=== PATIENT | female | born 1960 | race Caucasian/White ===

== ENCOUNTER 2016-10-11 10:44 | Emergency (ER) | payer BC, OTHER ==
[2016-10-11 11:01] VITALS: TEMP 98.1; BMI 37.9
[2016-10-11] MEDS ORDERED: MORPHINE 4 MG/ML INJECTION IV ONE ×2 (11:33→15:07)
[2016-10-11] MEDS ORDERED: NS 1,000 ML IV ONE (11:34)
[2016-10-11] MEDS ORDERED: SODIUM CHLORIDE 0.9% 3 ML FLUSH FLUSH PRN (11:34)
--- NOTE | 2016-10-11 11:44 | EDPRACDOC ---
- General Information Chief Complaint: Female Urogenital Problems Stated Complaint: LEFT FLANK PAIN Time Seen by Provider: 10/11/16 11:03 Information Source: Patient Mode Of Arrival: Car Home Medications: Home Medications Alprazolam [Xanax] 0.5 mg PO DAILY PRN 10/11/16 Ascorbate Calcium [Vitamin C] 500 mg PO DAILY 10/11/16 Aspirin (Enteric Coated) [Ecotrin] 81 mg PO DAILY 10/11/16 CYANOCOBALAMIN (Vitamin B-12) [Vitamin B-12 (cyanocobalamin)] 1 ml SQ QMONTH Calcium Carbonate [Calcium] 600 mg PO DAILY 10/11/16 Cranberry Extract [Cranberry] 200 mg PO DAILY 10/11/16 Desloratadine [Clarinex] 5 mg PO DAILY 10/11/16 Ergocalciferol (Vitamin D2) [Vitamin D] 400 unit PO DAILY 10/11/16 Ferrous Sulfate [Iron] 325 mg PO DAILY 10/11/16 Fluoxetine HCl [Prozac] 40 mg PO DAILY 10/11/16 Folic Acid 1 mg PO DAILY 10/11/16 Furosemide [Lasix] 40 mg PO DAILY 10/11/16 Hydrocodone Bit/Acetaminophen [Hydrocodon-Acetaminophen 5-325] 1 tab PO Q6H PRN #14 tab 10/11/16 Hydrocodone Bit/Acetaminophen [[place] 5-325 Tablet] 1 tab PO Q4H PRN 10/11/16 Lactobacillus Combination No.4 [Probiotic] 1 cap PO DAILY 10/11/16 Levothyroxine [Synthroid, Levoxyl] 50 mcg PO DAILY 10/11/16 Loratadine 10 mg PO BID 10/11/16 Multivitamin [One Daily] 1 tab PO DAILY 10/11/16 Omeprazole 20 mg PO DAILY 10/11/16 Ondansetron HCl [Zofran] 4 mg PO Q8H PRN #10 tab 10/11/16 Prednisone [Deltasone, Orasone] 15 mg PO DAILY 10/11/16 Ubidecarenone [Co Q10] 200 mg PO DAILY 10/11/16 Allergies/Adverse Reactions: Allergies Allergy/AdvReac Type Severity Reaction Status Date / Time acetaminophen [From Percocet] Allergy Hives* Verified 10/11/16 11:01 meperidine [From Demerol] Allergy Anaphylaxis Verified 10/11/16 11:01 * oxycodone [From Percocet] Allergy Hives* Verified 10/11/16 11:01 - History of Present Illness Onset: days Pain Location: Reports: Left Relevant History: Reports: UTI Pain Severity: Reports: Moderate Pain Quality: Reports: Aching, Sharp Associated Signs and Symptoms: Reports: Abdominal Pain, Dysuria ED Past Medical History - History Reviewed Yes Nurses notes reviewed and agree except as marked - Patient Medical History Neurological History: Comment Only: Cerebrovascular Accident (facial stroke at 19) Psychological History: Reports: Anxiety. Denies: Depression Surgical History: Reports: Hysterectomy - Social Medical History Smoking Status: Never smoker ETOH: None Substance Abuse: None Lives In: Home EDM Review of Systems - Review of Systems ROS Negative Except as Marked: Yes All systems reviewed and were negative except as marked Constitutional: No Symptoms Reported Eyes: No Symptoms Reported Respiratory: No Symptoms Reported Cardiovascular: No Symptoms Reported Gastrointestinal: Pain Genitourinary: Frequency, Flank Pain, Urgency to urinate Neurological: No Symptoms Reported Integumentary: No Symptoms Reported - Physical Exam Constitutional: Alert (Awake), No apparent distress Oriented to: Time, Person, Place Last recorded Vital Signs: Last Vital Signs Temp 98.1 F 10/11/16 10:56 Pulse 97 10/11/16 11:01 Resp 19 10/11/16 11:01 BP 155/76 10/11/16 11:01 Pulse Ox 100 10/11/16 11:01 Oxygen Pulse Oxygen Saturation 100 O2 Device Oxygen Flow Rate Fraction of Inspired Oxygen ( FIO2) - HEENT Head: Normal ( normocephalic) Eye Exam: Normal (PERRL, EOMI, Sclera white) Nose: No Symptoms Reported (septum midline) Neck: Normal (FROM, trachea at midline) - Respiratory/Cardiovascular Respiratory: Normal - CTA (BBS clear to auscultation without adventitious sounds ) Cardiovascular: Normal (RRR without murmur, gallop or rub) - GI Auscultation: Normal (NABS) Tenderness: Non tender - Musculoskeletal Back: Normal (Non-Tender). negative: CVA Tenderness Extremities: Normal (Normal tone, Pulses 2+ No cyanosis or edema, FROM) - Integumentary Skin: Normal, Warm, Dry Lymphatics: Normal (no adenopathy) - Neurologic Memory Impaired: Normal Motor Function: Normal (Normal tone, Pulses 2+ No cyanosis or edema, FROM) Mood Description: Normal - Re-evaluation Re-evaluation 1 Re-evaluation Time: 13:19 Will await culture for UA and keep patient on Cipro at this time. Discussed results of UTI/kidney stone with patient. No nausea/vomiting, no fever, stable for d/c, return for symptoms discussed and followup with Urologist. - Results 10/11/16 12:00 10/11/16 12:00 Decision Time to Discharge: 13:26 - Departure Disposition: Home Condition: Stable Final Diagnosis: Kidney stone on left side Urinary tract infection Qualifiers: Urinary tract infection type: site unspecified Hematuria presence: with hematuria Qualified Code(s): N39.0 - Urinary tract infection, site not specified Instructions: Urinary Tract Infection in Women (ED), Dysuria Education/Counseling Given To: Patient Education/Counseling Given Regarding: Diagnosis, Treatment, Prognosis, Follow Up Referrals: Lon Spencer Jr, MD [Primary Care Provider] - 1-2 days Taye Guerra MD [Staff Physician] - One Week Prescriptions: Hydrocodone Bit/Acetaminophen [Hydrocodon-Acetaminophen 5-325] 1 tab PO Q6H PRN #14 tab PRN Reason: Pain Ondansetron HCl [Zofran] 4 mg PO Q8H PRN #10 tab PRN Reason: Nausea/Vomiting Forms: Excuse Note Additional Instructions: Please followup with Urologist as discussed Wednesday for an appt. Drink plenty of fluids, strain your urine, followup with PCP in 1-2days. Continue antibiotic treatment.
[2016-10-11 12:26] LABS: AUTOMATED BASOPHIL 0.3 % (0-2); AUTOMATED EOSINOPHIL 1.4 % (0-5); AUTOMATED LYMPH 8.4 % (17-44); AUTOMATED MONOCYTE 4.8 % (3-10); AUTOMATED NEUTROPHIL 85.1 % (45-76); MPV 8.6 fL (7.4-10.4)
[2016-10-11 12:40] LABS: BLOOD UREA NITROGEN 14 MG/DL (7-17); CALC CORRECTED 9.7 MG/DL (8.4-10.2); CALCIUM 9.5 MG/DL (8.4-10.2); CALCULATED OSMOLALITY 272 MOs/Kg (270-290); CHLORIDE 101 mEq/L (98-107); GLUCOSE 102 MG/DL (70-99); SODIUM LEVEL 141 mEq/L (137-146); TOTAL PROTEIN 6.4 G/DL (6.3-8.2)
[2016-10-11 12:40] LABS: NITRITE/URINE NEG (NEGATIVE); URINE OCCULT BLOOD 1+ (NEG/TRACE)
[2016-10-11 12:41] LABS: LEUKOCYTES/URINE 3+ (NEGATIVE)
[2016-10-11 12:45] LABS: WBC/URINE 20-30 (0-5)
[2016-10-11] MEDS ORDERED: CEFTRIAXONE 1 GM in D5W 100 ML IV ONE (12:51)
--- NOTE | 2016-10-11 12:57 | DIRPT ---
CLINICAL DATA: Left flank pain and urinary frequency for 1 week. Urinary tract infection. EXAM: CT ABDOMEN AND PELVIS WITHOUT CONTRAST TECHNIQUE: Multidetector CT imaging of the abdomen and pelvis was performed following the standard protocol without IV contrast. COMPARISON: None. FINDINGS: Lower chest: No acute findings. Mild cardiomegaly. Mild bilateral lower lobe scarring noted. Hepatobiliary: Diffuse hepatic steatosis noted. No liver masses visualized on this unenhanced exam. Gallbladder is unremarkable. Pancreas: No mass or inflammatory process identified on this un-enhanced exam. Spleen: Within normal limits in size. Adrenals/Urinary Tract: Adrenal glands are unremarkable. No intrarenal calculi identified. Mild left hydronephrosis and ureterectasis is seen. Multiple pelvic phleboliths are noted, but there does appear to be a single 2 mm calculus in the distal left ureter at the ureterovesical junction. Stomach/Bowel: No evidence of obstruction, inflammatory process, or abnormal fluid collections. Diverticulosis is seen involving the descending sigmoid colon, however there is no evidence of diverticulitis. Vascular/Lymphatic: No pathologically enlarged lymph nodes. No evidence of abdominal aortic aneurysm. Reproductive: Prior hysterectomy noted. 2 x 3 cm benign-appearing left ovarian cyst incidentally noted. Other: None. Musculoskeletal: No suspicious bone lesions identified. IMPRESSION: Mild left hydroureteronephrosis due to 2 mm calculus at the left ureterovesical junction. Hepatic steatosis. Colonic diverticulosis. No radiographic evidence of diverticulitis. Electronically Signed By: Raj Razo M.D. On: 10/11/2016 12:54
[2016-10-11 15:33] VITALS: BP 149/79; PULSE 75
[2016-10-11] MEDS ORDERED: SODIUM CHLORIDE 0.9% 3 ML FLUSH FLUSH SCH (18:00)
== END 2016-10-11 15:15 | disposition home or self-care (01) ==
LOC: ED 10:44
DX: N20.0 Calculus of kidney (principal); N39.0 Urinary tract infection, site not specified
CPT/HCPCS: 36415; 74176; 80053; 81001; 85025; 87077; 87086; 87186; 96361; 96365; 96375; 96376; 99283; J0696; J2270; J7060